=== PATIENT | female | born 1970 | race Caucasian/White ===

== ENCOUNTER 2021-03-25 11:27 | Emergency (ER) | payer MEDICAID ==
[~2021-03-25] VITALS: Ht 157.5 cm; Wt 69.9 kg
[2021-03-25 11:40] VITALS: BP 125/67
--- NOTE | 2021-03-25 11:50 | NUR ---
PT AMBULATED TO BED 12 WITH STEADY GAIT. PT PROVIDED URINE SAMPLE.
--- NOTE | 2021-03-25 12:10 | NUR ---
51 Y/O FEMALE C/O LEFT FLANK PAIN AND LEFT-SIDED ABDOMINAL PAIN X 2 WEEKS. PT STATES PAIN IS WORSE THE LAST FEW DAYS. /10, SORENESS. (+)DYSURIA WITH BURNING PAIN, (-)HEMATURIA. PT STATES THAT SHE HAS RECURRRENT UTI, WITH LAST USE OF ABX LAST MONTH. TOOK TYLENOL YESTERDAY. PT A/O X4 WITH EVEN AND UNLABORED RESPIRATIONS. PMH: DM, HLD, RECURRENT UTIS, KIDNEY STONES, KIDNEY STENT, COPD, CHF MEDS: INSULIN, METFORMIN, ATORVASTATIN NKA
--- NOTE | 2021-03-25 12:13 | NUR ---
DR FULLER AT BEDSIDE EVALUATING PT
[2021-03-25] MEDS ORDERED: KETOROLAC 60 MG/2 ML VIAL IM ONE (12:20)
[2021-03-25] MEDS ORDERED: ONDANSETRON 4 MG ODT PO ONE (12:20)
[2021-03-25] MEDS ORDERED: FAMOTIDINE 20 MG TAB PO ONE (12:20)
[2021-03-25 13:16] LABS: BASOPHILS # (AUTO) 0.1 K/uL (0.00-0.22); BASOPHILS % (AUTO) 0.7 % (0.0-2.0); EOSINOPHILS % (AUTO) 0.5 % (0.0-4.0); HEMATOCRIT 49.7 % (36-48); HEMOGLOBIN 17.2 g/dL (12.0-16.0); LYMPHOCYTES # (AUTO) 1.5 K/uL (2.5-16.5); LYMPHOCYTES % (AUTO) 19.1 % (20.5-51.1); MEAN CORPUSCULAR HEMOGLOBIN 31 pg (27-31); MEAN CORPUSCULAR HGB CONC 35 g/dL (33-37); MEAN CORPUSCULAR VOLUME 90.2 fL (80-94); MONOCYTES # (AUTO) 0.6 K/uL (0.8-1.0); MONOCYTES % (AUTO) 7.3 % (1.7-9.3); NEUTROPHILS # (AUTO) 5.7 K/uL (1.8-7.7); NEUTROPHILS % (AUTO) 72.4 % (42.2-75.2); PLATELET COUNT (AUTO) 240 K/uL (140-450); RED BLOOD CELL COUNT(AUTO) 5.51 MIL/uL (4.20-5.40); RED CELL DISTRIBUTION WIDTH 13.2 % (11.6-13.7); WHITE BLOOD COUNT (AUTO) 7.9 K/uL (4.8-10.8)
[2021-03-25 13:18] LABS: ALBUMIN 4.4 g/dL (3.4-5.0); CARBON DIOXIDE 29.1 mmol/L (21-32); CREATININE 1.2 mg/dL (0.6-1.3); POTASSIUM 4.1 mmol/L (3.5-5.1); TOTAL BILIRUBIN 0.4 mg/dL (0.0-1.0)
--- NOTE | 2021-03-25 13:45 | NUR ---
PT IS NOW C/O HEADACHE. DR FULLER MADE AWARE
[2021-03-25] MEDS ORDERED: ACETAMINOPHEN 325 MG TAB PO ONE (13:55)
--- NOTE | 2021-03-25 14:00 | NUR ---
providing relief for primary RN. pt currently a/o x 4, gcs 15.NAD at this time.
[2021-03-25] MEDS ORDERED: ACET-8386 PO (14:26)
[2021-03-25] MEDS ORDERED: NAPR-1546 PO (14:26)
[2021-03-25] MEDS ORDERED: SULF-58 PO (14:26)
[2021-03-25 14:28] LABS: BILIRUBIN,URINE NEGATIVE (NEGATIVE); BLOOD, URINE NEGATIVE (NEGATIVE); COLOR,URINE YELLOW (YELLOW); LEUKOCYTE ESTERASE ,URINE 2+ (NEGATIVE); NITRITE, URINE NEGATIVE (NEGATIVE); UGLUCOSE 1+ (NEGATIVE)
[2021-03-25 14:38] LABS: APPEARANCE,URINE HAZY (CLEAR)
[2021-03-25 14:41] LABS: RBC,URINE NONE SEEN /HPF (0-5); WBC,URINE 20-60 /HPF (0-5)
[2021-03-25 14:45] VITALS: BP 141/71
--- NOTE | 2021-03-25 15:07 | NUR ---
Patient discharged with v/s stable. Written and verbal after care instructions ABOUT MEDICATION, UTI, AND GASTROESOPHAGEAL REFLUX DISEASE given and explained. Patient alert, oriented and verbalized understanding of instructions. Ambulatory with steady gait. All questions addressed prior to discharge. ID band removed. Patient advised to follow up with PMD. Rx of HYDROCODONE/ACETAMINOPHEN 5-325MG, NAPROXEN, AND BACTRIM 400-80MG TAB given. Patient educated on indication of medication including possible reaction and side effects. Opportunity to ask questions provided and answered.
== END 2021-03-25 15:07 | disposition home or self-care (01) ==
LOC: MED 11:27
DX: N12 Tubulo-interstitial nephritis, not specified as acute or chronic (principal); K21.9 Gastro-esophageal reflux disease without esophagitis; J44.9 Chronic obstructive pulmonary disease, unspecified; E11.9 Type 2 diabetes mellitus without complications; I10 Essential (primary) hypertension; E78.5 Hyperlipidemia, unspecified; Z79.899 Other long term (current) drug therapy; Z87.442 Personal history of urinary calculi
CPT/HCPCS: 36415; 80053; 81001; 81025; 83690; 85025; 87086; 96361; 96374; 99283; J1885; Q0162

== ENCOUNTER 2021-07-25 15:10 | Emergency (ER) | payer MEDICAID, OTHER ==
[~2021-07-25] VITALS: Ht 157.5 cm; Wt 74.4 kg
[~2021-07-25 15:10] MED LIST: ACET-8386 PO; NAPR-1546 PO; SULF-58 PO
[2021-07-25 15:46] VITALS: BP 125/87
--- NOTE | 2021-07-25 17:08 | NUR ---
PT BROUGHT TO TRIAGE FOR ERMD EVALUATION.
[2021-07-25] MEDS ORDERED: KETOROLAC 60 MG/2 ML VIAL IM ONE (17:20)
--- NOTE | 2021-07-25 17:40 | NUR ---
PT AMBUATED WITH EVEN AND STEADY GAIT TO BED 7
[2021-07-25 17:44] LABS: APPEARANCE,URINE CLEAR (CLEAR); BILIRUBIN,URINE NEGATIVE (NEGATIVE); BLOOD, URINE NEGATIVE (NEGATIVE); COLOR,URINE YELLOW (YELLOW); LEUKOCYTE ESTERASE ,URINE NEGATIVE (NEGATIVE); NITRITE, URINE NEGATIVE (NEGATIVE); UGLUCOSE 3+ (NEGATIVE)
[2021-07-25 17:44] LABS: BASOPHILS % (AUTO) 0.4 % (0.0-2.0); EOSINOPHILS # (AUTO) 0.1 K/uL (0-0.4); EOSINOPHILS % (AUTO) 0.9 % (0.0-4.0); HEMATOCRIT 47.7 % (36-48); HEMOGLOBIN 16.2 g/dL (12.0-16.0); LYMPHOCYTES # (AUTO) 1.9 K/uL (2.5-16.5); LYMPHOCYTES % (AUTO) 18.9 % (20.5-51.1); MEAN CORPUSCULAR HEMOGLOBIN 31 pg (27-31); MEAN CORPUSCULAR HGB CONC 34 g/dL (33-37); MEAN CORPUSCULAR VOLUME 91.6 fL (80-94); MONOCYTES # (AUTO) 0.7 K/uL (0.8-1.0); MONOCYTES % (AUTO) 7.5 % (1.7-9.3); NEUTROPHILS # (AUTO) 7.1 K/uL (1.8-7.7); NEUTROPHILS % (AUTO) 72.3 % (42.2-75.2); PLATELET COUNT (AUTO) 271 K/uL (140-450); RED BLOOD CELL COUNT(AUTO) 5.21 MIL/uL (4.20-5.40); RED CELL DISTRIBUTION WIDTH 13.2 % (11.6-13.7); WHITE BLOOD COUNT (AUTO) 9.8 K/uL (4.8-10.8)
--- NOTE | 2021-07-25 17:49 | NUR ---
51 y/o female from home c/o left flank pain with urinary burning x 1 wk. Pt states that she feels like she has kidney stones. Hx of stones in the past. Denies n/v/d. Abd soft, nontender to palp. RR even and unlabored. Bed locked and lowest position. Awake and alert medhx: DM, anxiety
[2021-07-25 18:04] LABS: ALBUMIN 4.1 g/dL (3.4-5.0); ANION GAP 16.7 (8-16); CARBON DIOXIDE 27.5 mmol/L (21-32); CREATININE 1.4 mg/dL (0.6-1.3); POTASSIUM 4.2 mmol/L (3.5-5.1); TOTAL BILIRUBIN 0.3 mg/dL (0.0-1.0)
[2021-07-25] MEDS ORDERED: BEN10 PO (19:04)
[2021-07-25] MEDS ORDERED: ONDA-188 SL (19:04)
[2021-07-25] MEDS ORDERED: SIME180C9 PO (19:04)
[2021-07-25 19:30] VITALS: BP 125/87
--- NOTE | 2021-07-25 19:31 | NUR ---
PT WAS GIVEN COPY OF LAB AND IMAGING RESULTS PER REQUEST. PT WAS TAUGHT TO ROTATE SITES FOR INSULIN INJECTION DUE TO BRUISING AT CURRENT AREA. WAS TOLD AROUND UMBILICAL AREA AND SUBQ AREA ON UPPER ARM
--- NOTE | 2021-07-25 19:31 | NUR ---
Patient discharged with v/s stable. Written and verbal after care instructions given and explained. Patient alert, oriented and verbalized understanding of instructions. Ambulatory with steady gait. All questions addressed prior to discharge. ID band removed. Patient advised to follow up with PMD. Rx of DICYCLOMINE, ONDANSETRON, SIMETHICONE (SCRIPT) given. Patient educated on indication of medication including possible reaction and side effects. Opportunity to ask questions provided and answered.
== END 2021-07-25 19:31 | disposition home or self-care (01) ==
LOC: MED 15:10
DX: R10.9 Unspecified abdominal pain (principal); R94.5 Abnormal results of liver function studies; J44.9 Chronic obstructive pulmonary disease, unspecified; K21.9 Gastro-esophageal reflux disease without esophagitis; E78.5 Hyperlipidemia, unspecified; I10 Essential (primary) hypertension; Z87.442 Personal history of urinary calculi; Z79.899 Other long term (current) drug therapy
CPT/HCPCS: 36415; 71045; 74176; 80053; 81003; 83690; 84484; 85025; 93005; 96372; 99285; J1885; Q0092

== ENCOUNTER 2022-03-04 17:32 | Emergency (ER) | payer OTHER ==
[~2022-03-04] VITALS: Ht 157.5 cm; Wt 70.9 kg
[~2022-03-04 17:32] MED LIST changes: +BEN10 PO; +ONDA-188 SL; +SIME180C9 PO
[2022-03-04 17:46] VITALS: BP 146/105
[2022-03-04 19:04] LABS: BASOPHILS # (AUTO) 0.1 K/uL (0.00-0.22); BASOPHILS % (AUTO) 0.5 % (0.0-2.0); EOSINOPHILS # (AUTO) 0.1 K/uL (0-0.4); EOSINOPHILS % (AUTO) 1.1 % (0.0-4.0); HEMOGLOBIN 17.3 g/dL (12.0-16.0); LYMPHOCYTES # (AUTO) 1.3 K/uL (2.5-16.5); LYMPHOCYTES % (AUTO) 13.1 % (20.5-51.1); MEAN CORPUSCULAR HEMOGLOBIN 29 pg (27-31); MEAN CORPUSCULAR HGB CONC 33 g/dL (33-37); MEAN CORPUSCULAR VOLUME 86.9 fL (80-94); MONOCYTES # (AUTO) 0.7 K/uL (0.8-1.0); MONOCYTES % (AUTO) 6.8 % (1.7-9.3); NEUTROPHILS # (AUTO) 7.9 K/uL (1.8-7.7); NEUTROPHILS % (AUTO) 78.5 % (42.2-75.2); PLATELET COUNT (AUTO) 224 K/uL (140-450); RED BLOOD CELL COUNT(AUTO) 5.98 MIL/uL (4.20-5.40); RED CELL DISTRIBUTION WIDTH 14.1 % (11.6-13.7)
--- NOTE | 2022-03-04 19:07 | NUR ---
PT AMBULATED TO ER BED 9
--- NOTE | 2022-03-04 19:35 | NUR ---
RECEIVED IN BED 9 WITH C/O LOW BACK PAIN, URINARY BURNING/PAIN/ FREQUENCY, POSSIBLE YEAST INFECTION. PT STATES SHE HAS NAUSEA AND FEELS DIZZY. PT STATES " SHE JUST WANTS TO CLOSE HER EYES". BS 152 AT TRIAGE. PT DENIES FEVER. PT DENIES CHEST PAIN, SOB. PMH: DM, HDL, NEUROPATHY MEDS:METFORMIN, AMLODIPINE, GABAPENTIN
[2022-03-04 19:43] LABS: APPEARANCE,URINE CLEAR (CLEAR); BILIRUBIN,URINE NEGATIVE (NEGATIVE); BLOOD, URINE NEGATIVE (NEGATIVE); COLOR,URINE YELLOW (YELLOW); LEUKOCYTE ESTERASE ,URINE NEGATIVE (NEGATIVE); NITRITE, URINE NEGATIVE (NEGATIVE); PH,URINE 5.5 (5.0-9.0); UGLUCOSE 3+ (NEGATIVE)
[2022-03-04 19:49] LABS: ALBUMIN 4.2 g/dL (3.4-5.0); ANION GAP 13.1 (8-16); CARBON DIOXIDE 27.4 mmol/L (21-32); CREATININE 0.9 mg/dL (0.6-1.3); POTASSIUM 3.5 mmol/L (3.5-5.1); TOTAL BILIRUBIN 0.4 mg/dL (0.0-1.0)
--- NOTE | 2022-03-04 19:50 | NUR ---
PELVIC EXAM DONE. 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 WET MOUNT SENT TO LAB
[2022-03-04] MEDS ORDERED: ACET-10509 PO (22:12)
[2022-03-04 22:52] VITALS: BP 146/105
== END 2022-03-04 22:45 | disposition home or self-care (01) ==
LOC: MED 17:32
DX: N89.8 Other specified noninflammatory disorders of vagina (principal); R30.0 Dysuria; R10.32 Left lower quadrant pain; K21.9 Gastro-esophageal reflux disease without esophagitis; I25.10 Atherosclerotic heart disease of native coronary artery without angina pectoris; E11.9 Type 2 diabetes mellitus without complications; I10 Essential (primary) hypertension; Z79.4 Long term (current) use of insulin; Z79.899 Other long term (current) drug therapy
CPT/HCPCS: 36415; 80053; 81002; 81003; 84484; 84703; 85025; 87210; 93005; 99285

== ENCOUNTER 2022-05-01 19:00 | Emergency (ER) | payer OTHER ==
[~2022-05-01] VITALS: Ht 157.5 cm; Wt 70.3 kg
[~2022-05-01 19:00] MED LIST changes: +ACET-10509 PO
[2022-05-01 19:15] VITALS: BP 135/88
--- NOTE | 2022-05-01 21:07 | NUR ---
YOLETTE CASEY EXAMINING PATIENT
[2022-05-01] MEDS ORDERED: NAPR-1717 PO (22:00)
--- NOTE | 2022-05-01 22:07 | NUR ---
PT PROVIDED WITH DISCHARGE INSTRUCTIONS BY DR. SNELL. RX OF NAPROSYN PROVIDED.
== END 2022-05-01 22:08 | disposition home or self-care (01) ==
LOC: MED 19:00
DX: M77.9 Enthesopathy, unspecified (principal); J44.9 Chronic obstructive pulmonary disease, unspecified; I25.10 Atherosclerotic heart disease of native coronary artery without angina pectoris; I10 Essential (primary) hypertension; K21.9 Gastro-esophageal reflux disease without esophagitis; E11.9 Type 2 diabetes mellitus without complications; Z79.4 Long term (current) use of insulin; Z79.899 Other long term (current) drug therapy; Z98.890 Other specified postprocedural states
CPT/HCPCS: 73130; 99283

== ENCOUNTER 2023-01-13 16:06 | Inpatient (IN) | payer OTHER ==
[~2023-01-13] VITALS: Ht 157.5 cm; Wt 72.6 kg
[~2023-01-13 16:06] MED LIST changes: -ACET-8386 PO; +ACET-8905 PO; +NAPR-1717 PO
[2023-01-13 16:08] VITALS: BP 147/98
--- NOTE | 2023-01-13 16:09 | NUR ---
BIBA BLS TO ER BED 11
[2023-01-13] MEDS ORDERED: ALBUTEROL 0.083% 2.5 MG/3 ML NEBU INH ONE (16:15)
[2023-01-13] MEDS ORDERED: AZITHROMYCIN 250 MG TAB PO ONE (16:15)
[2023-01-13] MEDS ORDERED: methylPREDNISolone SS 125 MG/2 ML VIAL IVP ONE (16:15)
--- NOTE | 2023-01-13 16:25 | NUR ---
53 YO FEMALE PRESENTS TO THE ED WITH C/O SOB. PATIENT STATES SHE WAS AT WORK [employer]. AND SHE STARTED COUGHING, CHOKING, AND VOMITING. PATIENT STATES SHE HAS BEEN HEARING A WHEEZING FOR 2 WEEKS AT NIGHT WHILE SLEEPING THAT WAKES HER UP.
[2023-01-13 16:35] LABS: BASOPHILS % (AUTO) 0.5 % (0.0-2.0); EOSINOPHILS # (AUTO) 0.1 K/uL (0-0.4); EOSINOPHILS % (AUTO) 1.1 % (0.0-4.0); HEMATOCRIT 47.8 % (36-48); HEMOGLOBIN 16.3 g/dL (12.0-16.0); LYMPHOCYTES # (AUTO) 1.1 K/uL (2.5-16.5); LYMPHOCYTES % (AUTO) 14.2 % (20.5-51.1); MEAN CORPUSCULAR HEMOGLOBIN 30 pg (27-31); MEAN CORPUSCULAR HGB CONC 34 g/dL (33-37); MEAN CORPUSCULAR VOLUME 88.3 fL (80-94); MONOCYTES # (AUTO) 0.6 K/uL (0.8-1.0); NEUTROPHILS # (AUTO) 5.7 K/uL (1.8-7.7); NEUTROPHILS % (AUTO) 76.2 % (42.2-75.2); PLATELET COUNT (AUTO) 211 K/uL (140-450); RED BLOOD CELL COUNT(AUTO) 5.42 MIL/uL (4.20-5.40); RED CELL DISTRIBUTION WIDTH 13.7 % (11.6-13.7); WHITE BLOOD COUNT (AUTO) 7.5 K/uL (4.8-10.8)
[2023-01-13] MEDS ORDERED: predniSONE 20 MG TAB PO ONE (16:35)
--- NOTE | 2023-01-13 16:47 | NUR ---
rt at bedside for br tx
[2023-01-13 16:49] LABS: ALBUMIN 3.8 g/dL (3.4-5.0); CARBON DIOXIDE 29.3 mmol/L (21-32); CREATININE 1.4 mg/dL (0.6-1.3); POTASSIUM 4.3 mmol/L (3.5-5.1); TOTAL BILIRUBIN 0.3 mg/dL (0.0-1.0)
--- NOTE | 2023-01-13 17:50 | NUR ---
PT AMBULATED IN ER WITH STEADY GAIT. PULSE OX MONITORED WITH PORTABLE SPO2 MONITOR. O2 AT REST 90%, O2 DURING AMBULATION IS 82% RA. ERMD MADE AWARE
--- NOTE | 2023-01-13 18:10 | NUR ---
COVID SWAB COLLECTED AND SENT TO LAB
[2023-01-13] MEDS ORDERED: CLON-527 TD (18:39)
[2023-01-13] MEDS ORDERED: SERT100T PO (18:39)
[2023-01-13] MEDS ORDERED: AMLO5TAB PO (18:39)
[2023-01-13] MEDS ORDERED: ACETAMINOPHEN 325 MG TAB PO PRN (19:05)
[2023-01-13] MEDS ORDERED: ONDANSETRON 4 MG/2 ML VIAL IVP PRN (19:05)
[2023-01-13] MEDS ORDERED: LORazepam 2 MG/ML VIAL IVP PRN (19:05)
[2023-01-13] MEDS ORDERED: ALBUTEROL 0.083% 2.5 MG/3 ML NEBU INH PRN (19:05)
--- NOTE | 2023-01-13 19:26 | NUR ---
Received report from LAKISHA Bernal and continue care of patient.
--- NOTE | 2023-01-13 20:13 | NUR ---
Patient will be admitted to care of Dr. Pool. Admited to TELE. Will go to room 105A. Belongings list completed. Report to LAKISHA Arriaza.
[2023-01-13 20:25] VITALS: BP 156/86
--- NOTE | 2023-01-13 20:25 | NUR ---
RECEIVED PT ER. PATIENT IS AWAKE, ALERT AND ORIENTED X 4. AMBULATED TO THE BED WITH STEADY GAIT. DENIES PAIN. DENIES SHORTNESS OF BREATH ON 02-2L SAT 93%. SKIN WARM AND DRY TO TOUCH. ORIENTED TO [facility] SET UP, UPDATED WHITEBOARD. BED IN THE LOWEST AND LOCKED POSITION FOR SAFETY, CALL LIGHT GIVEN TO PT, ENCOURAGED TO CALL IF ASSISTANCE IS NEEDED, PT VERBALLY ACKNOWLEDGED.
[2023-01-13] MEDS ORDERED: DEXTROSE 50% 50 ML SYR IVP PRN (20:55)
[2023-01-13] MEDS: INSULIN LISPRO SLIDING SCALE 100 UNITS/ML VIAL SUBQ PRN (21:41)
[2023-01-13] MEDS: BLOOD GLUCOSE MONITORING 1 DEV DEV FS SCH (21:41)
[2023-01-13] MEDS: methylPREDNISolone SS 125 MG/2 ML VIAL IVP SCH (23:14)
[2023-01-14] VITALS: BP 140/89
[2023-01-14 04:00] VITALS: BP 138/75
[2023-01-14] MEDS: methylPREDNISolone SS 125 MG/2 ML VIAL IVP SCH (05:31)
[2023-01-14] MEDS: BLOOD GLUCOSE MONITORING 1 DEV DEV FS SCH ×4 (06:38→20:43)
[2023-01-14] MEDS: INSULIN LISPRO SLIDING SCALE 100 UNITS/ML VIAL SUBQ PRN ×5 (06:38→20:46)
--- NOTE | 2023-01-14 06:42 | NUR ---
PATIENT IS AWAKE,ALERT AND ORIENTED X 4. NO ACUTE RESPIRATORY DISTRESS. ALL NEEDS ATTENDED TO. SAFETY PRECAUTIONS MAINTAINED DURING THE SHIFT, CALL LIGHT REMAINS WITHIN REACH.
--- NOTE | 2023-01-14 07:00 | NUR ---
RECEIVED REPORT FROM NIGHTSHIFT NURSE. PT AWAKE, STABLE. WILL CONTINUE WITH CARE.
[2023-01-14 08:00] VITALS: BP 166/99
[2023-01-14] MEDS ORDERED: methylPREDNISolone SS 40 MG/ML VIAL IVP SCH (08:10)
[2023-01-14 08:52] LABS: BASOPHILS % (AUTO) 0.2 % (0.0-2.0); HEMATOCRIT 51.9 % (36-48); HEMOGLOBIN 17.6 g/dL (12.0-16.0); LYMPHOCYTES # (AUTO) 0.7 K/uL (2.5-16.5); LYMPHOCYTES % (AUTO) 5.2 % (20.5-51.1); MEAN CORPUSCULAR HEMOGLOBIN 30 pg (27-31); MEAN CORPUSCULAR HGB CONC 34 g/dL (33-37); MEAN CORPUSCULAR VOLUME 87.8 fL (80-94); MONOCYTES # (AUTO) 0.1 K/uL (0.8-1.0); MONOCYTES % (AUTO) 0.7 % (1.7-9.3); NEUTROPHILS # (AUTO) 11.9 K/uL (1.8-7.7); NEUTROPHILS % (AUTO) 93.9 % (42.2-75.2); PLATELET COUNT (AUTO) 246 K/uL (140-450); RED BLOOD CELL COUNT(AUTO) 5.91 MIL/uL (4.20-5.40); RED CELL DISTRIBUTION WIDTH 13.8 % (11.6-13.7); WHITE BLOOD COUNT (AUTO) 12.7 K/uL (4.8-10.8)
--- NOTE | 2023-01-14 08:54 | NUR ---
PATIENT HAS BEEN SCREENED AND CATEGORIZED MODERATE NUTRITION RISK. PATIENT WILL BE SEEN WITHIN 3-5 DAYS OF ADMISSION. 01/13/23-01/18/[address] BY NISHA EPSTE[address] RD
[2023-01-14 09:05] LABS: ANION GAP 16.3 (8-16); CARBON DIOXIDE 26.7 mmol/L (21-32); CREATININE 0.9 mg/dL (0.6-1.3)
[2023-01-14] MEDS: MORPHINE SULFATE 2 MG/ML SYR IVP PRN ×2 (09:06→20:16)
[2023-01-14] MEDS: amLODIPine 5 MG TAB PO SCH (09:07)
[2023-01-14] MEDS: SERTRALINE 50 MG TAB PO SCH (09:07)
[2023-01-14] MEDS: ENOXAPARIN 40 MG/0.4 ML SYR SUBQ SCH (09:21)
[2023-01-14 12:00] VITALS: BP 154/94
--- NOTE | 2023-01-14 12:55 | NUR ---
DC PLANNIN YRS OLD FEMALE PATIENT WAS ADMITTED FROM HOME WITH A DX OF COPD. PATIENT HAS A HX OF HLD, HTN, COPD AND COVID. CXR NORMAL. RAPID COVID TEST NEGATIVE. ADMINISTERED IVF, IV ABX ROCEPHIN, AZITHROMYCIN AND BOO MEDROL IV. CONSULTED WITH [facility] FOR TASHA. DC PLAN TO GO HOME WHEN STABLE. CM TO FOLLOW Addendum: 01/15/23 at 1018 by JOHN SABILLON CM RECEIVED ORDER FOR PATIENT TO RECEIVE HOME HEALTH O2, AND NEBULIZER. FAXED ALL PAPERWORK TO [facility] AND [facility]. WILL FOLLOW UP WITH UPDATED INFORMATION. Addendum: 01/15/23 at 1236 by JOHN SABILLON CM FAXED FACE SHEET TO [facility]. CALLED [facility] TO CONFIRM THAT THEY RECEIVED BOTH FACE SHEET AND PRESCRIPTION, WHICH THEY DID. MEDS ARE ALL SET IN PLACE TO GET DELIVERED TO HOME. Addendum: 01/15/23 at 1254 by DONNA AMBROSIO CM DC PLANNING FOR DC TODAY WITH HOME O2 AND NEB MACHINE.DME ARRANGED BY GERALDOSAUSAGE LINKER.
[2023-01-14] MEDS: ALBUTEROL SULFATE/IPRATROPIU 3 ML SOL IH SCH ×2 (13:48→19:08)
[2023-01-14 16:00] VITALS: BP 147/88
[2023-01-14 18:48] LABS: APPEARANCE,URINE SL CLOUDY (CLEAR); BILIRUBIN,URINE NEGATIVE (NEGATIVE); BLOOD, URINE NEGATIVE (NEGATIVE); COLOR,URINE YELLOW (YELLOW); LEUKOCYTE ESTERASE ,URINE NEGATIVE (NEGATIVE); NITRITE, URINE POSITIVE (NEGATIVE); UGLUCOSE 3+ (NEGATIVE)
[2023-01-14 18:51] LABS: RBC,URINE 0-5 /HPF (0-5)
--- NOTE | 2023-01-14 19:20 | NUR ---
ENDORSED PT TO NIGHTSHIFT NURSE FOR CONTINUITY OF CARE. INFORMED MD OF PT'S HIGH BLOOD SUGAR. COVERED WITH INSULIN, WAITING FOR RESPONSE FROM MD. ENDORSED TO NIGHTSHIFT.
--- NOTE | 2023-01-14 19:30 | NUR ---
RECEIVED REPORT FROM DAY SHIFT NURSE ELANA FOR CONTINUITY OF CARE. PATIENT IS A&O X4. PATIENT IS ON 2L NC, BREATHING IS NORMAL WITH SYMMETRICAL RISE AND FALL OF CHEST. IV IS A 20 LAC, NO FLUIDS RUNNING AT THIS TIME. PATIENT IS AWAKE, LYING SEMI-FOWLERS IN BED. BED IS IN LOWEST POSITION, WHEELS LOCKED, CALL LIGHT IN PLACE. WILL CONTINUE TO OBSERVE PATIENT.
[2023-01-14 20:00] VITALS: BP 135/71
[2023-01-14] MEDS ORDERED: INSULIN LANTUS 100 UNITS/ML 10 ML VIAL SUBQ SCH (21:00)
[2023-01-14] MEDS ORDERED: AZITHROMYCIN 500 MG in DEXTROSE 5% 250 ML IV SCH (21:00)
--- NOTE | 2023-01-14 21:15 | NUR ---
PATIENT'S BS WAS 410. RECHECKED BS A FEW MINUTES LATER, BS WAS 432. MESSAGED DR. MARTINEZ ABOUT PATIENT'S BS. DR. MARTINEZ ORDER LANTUS 20 UNITS. HUMALOG 10 UNITS AND LANTUS 20 UNITS WERE ADMINISTERED TO THE PATIENT.
[2023-01-14 21:36] LABS: URINE TOTAL PROTEIN 49.5 mg/dL (0-12)
--- NOTE | 2023-01-14 22:30 | NUR ---
PATIENT REQUESTED PAIN MEDICATION FOR 8/10 LEFT ARM PAIN. ASSESSED IV SITE, NO REDNESS OR SWELLING PRESENT; FLUSHED IV, IV WAS PATENT. PATIENT'S BREATHING WAS UNLABORED AND HEART RATE WAS SINUS RHYTHM ON TELE MONITOR. CHECKED PATIENT'S CHART AND VITALS. MORPHINE WAS APPROPRIATE TO ADMINISTER. ADMINISTERED MORPHINE AND 2100 MEDICATION AZITHROMYCIN IVPB. 10 MINUTES LATER PATIENT COMPLAINED OF BURNING IN LEFT SHOULDER. IV WAS STOPPED AND AREA WAS ASSESSED. NO SIGN OF REDNESS OR SWELLING. RE-FLUSHED IV, IV PATENT. PATIENT STATED THAT HER ARM WAS FEELING BETTER. NEW IV WAS PLACED IN PATIENT'S R WRIST 22G. IV MEDICATION WAS STARTED AGAIN IN NEW IV, PATIENT STATED THAT THERE WAS NO PAIN. WILL CONTINUE TO OBSERVE PATIENT.
[2023-01-15] VITALS: BP 157/90
--- NOTE | 2023-01-15 01:00 | NUR ---
PATIENT IS SLEEPING, LYING ON HER SIDE. BREATHING IS NORMAL WITH SYMMETRICAL RISE AND FALL OF CHEST. WILL CONTINUE TO OBSERVE PATIENT.
[2023-01-15 04:00] VITALS: BP 156/95
--- NOTE | 2023-01-15 05:00 | NUR ---
PATIENT SLEPT THROUGHOUT THE NIGHT. BREATHING WAS NORMAL WITH SYMMETRICAL RISE AND FALL OF CHEST. WILL CONTINUE TO OBSERVE PATIENT.
[2023-01-15] MEDS: BLOOD GLUCOSE MONITORING 1 DEV DEV FS SCH ×2 (06:41→11:45)
[2023-01-15] MEDS: INSULIN LISPRO SLIDING SCALE 100 UNITS/ML VIAL SUBQ PRN ×2 (06:42→11:48)
[2023-01-15] MEDS: ALBUTEROL SULFATE/IPRATROPIU 3 ML SOL IH SCH ×2 (07:00→13:21)
[2023-01-15 07:02] LABS: ANION GAP 11.4 (8-16); CARBON DIOXIDE 30.3 mmol/L (21-32); CREATININE 0.9 mg/dL (0.6-1.3); POTASSIUM 3.7 mmol/L (3.5-5.1)
--- NOTE | 2023-01-15 07:10 | NUR ---
PT REFUSED TX. NO DISTRESS NOTED. WILL CONTINUE TO MONITOR.
--- NOTE | 2023-01-15 07:30 | NUR ---
RECEIVED REPORT FROM PERIOPERATIVE NURSE NURSE. POC DISCUSSED. PT CURRENTLY RESTING WITH CHEST RISING AND FALLING. NO ACUTE S/S OF DISTRESS. ALL SAFETY MEASURES IN PLACE. CALL LIGHT WITHIN REACH.
--- NOTE | 2023-01-15 07:30 | NUR ---
ENDORSED TO DAY SHIFT NURSE JOMAR AND ORIENTING NURSE GOOD FOR CONTINUITY OF CARE. PATIENT IS STABLE.
--- NOTE | 2023-01-15 07:48 | NUR ---
TRIED TO TITRATE PT TO ROOM AIR FROM 2L NC. PT EXPRESSED SHE FELT SHE NEEDED IT AND GET SOB WITHOUT IT. TOLD PT WE WILL TRY AGAIN LATER AND REASSESS. WILL CONTINUE TO MONITOR.
[2023-01-15 08:00] VITALS: BP 146/87
[2023-01-15] MEDS: amLODIPine 5 MG TAB PO SCH (08:17)
[2023-01-15] MEDS: SERTRALINE 50 MG TAB PO SCH (08:17)
[2023-01-15] MEDS: ENOXAPARIN 40 MG/0.4 ML SYR SUBQ SCH (08:19)
[2023-01-15] MEDS ORDERED: PRED20TA5 PO (08:36)
[2023-01-15] MEDS ORDERED: ALBU0.0912 IH (08:36)
[2023-01-15] MEDS ORDERED: CEFP200T20 PO (08:36)
[2023-01-15] MEDS ORDERED: ALBU3SOL83 IH (08:36)
[2023-01-15] MEDS ORDERED: AZIT250T4 PO (08:36)
[2023-01-15] MEDS ORDERED: methylPREDNISolone SS 40 MG/ML VIAL IVP SCH (09:00)
[2023-01-15 12:00] VITALS: BP 142/79
[2023-01-15] MEDS: MORPHINE SULFATE 2 MG/ML SYR IVP PRN (12:01)
--- NOTE | 2023-01-15 14:30 | NUR ---
HOME O2 AND NEBULIZER DROPPED OFF TO PTS ROOM, WILL INFORM PRIMARY RN.
[2023-01-15 14:47] VITALS: BP 142/79
--- NOTE | 2023-01-18 13:18 | NUR ---
CALLED DR CHAZ [facility] OFF[facility] LOCATED AT [address] [place] [address]. SPOKE WITH MERRILL WHO WAS ABLE TO HELP ME SCHEDULE A FOLLOW UP APPOINTMENT FOR 01/20/2023 AT 1240. CALLED PATIENT WHO ANSWERING MACHINE SAID NUMBER ISN'T IN SERVICE AND WHEN I CALLED PTN ANSWERING MACHINE SAYS THE SAME THING THAT NUMBER ISN'T IN SERVICE.
== END 2023-01-15 15:55 | disposition home or self-care (01) | DRG 720 ==
LOC: MED 16:06 → MTU 19:19 → OBSVTOIN 19:19 → MTU 19:51
PROVIDERS: ADMIT Internal Medicine; ATTEND Internal Medicine
DX: A41.9 Sepsis, unspecified organism (principal); J96.21 Acute and chronic respiratory failure with hypoxia; N17.9 Acute kidney failure, unspecified; J44.1 Chronic obstructive pulmonary disease with (acute) exacerbation; N39.0 Urinary tract infection, site not specified; I10 Essential (primary) hypertension; Z20.822 Contact with and (suspected) exposure to COVID-19; E78.5 Hyperlipidemia, unspecified; E11.9 Type 2 diabetes mellitus without complications; M77.8 Other enthesopathies, not elsewhere classified; Z79.1 Long term (current) use of non-steroidal anti-inflammatories (NSAID); Z79.899 Other long term (current) drug therapy; Z86.16 Personal history of COVID-19
CPT/HCPCS: 36415; 71045; 76770; 80048; 80053; 81001; 82570; 82948; 83735; 83880; 84100; 84484; 85025; 85379; 87081; 87086; 94640; 99291; 99292; J0456; J0696; J1650; J1815; J2270; J2920; J2930; J7060; J7512; J7613; Q0092

== ENCOUNTER 2023-03-02 09:47 | Emergency (ER) | payer OTHER ==
[~2023-03-02] VITALS: Ht 157.5 cm; Wt 72.6 kg
[~2023-03-02 09:47] MED LIST changes: +ALBU0.0912 IH; +ALBU3SOL83 IH; +AMLO5TAB PO; +AZIT250T4 PO; +CEFP200T20 PO; +CLON-527 TD; +PRED20TA5 PO; +SERT100T PO; -SULF-58 PO
[2023-03-02 10:00] VITALS: BP 146/70; PULSE 71; RESP 18; TEMP 97.9; O2SAT 99
[2023-03-02] MEDS ORDERED: KETOROLAC 30 MG/ML VIAL IM ONE (10:20)
--- NOTE | 2023-03-02 10:45 | NUR ---
UA WALKED, PREG -, DIPPED
[2023-03-02 11:05] LABS: BILIRUBIN,URINE NEGATIVE (NEGATIVE); BLOOD, URINE NEGATIVE (NEGATIVE); COLOR,URINE YELLOW (YELLOW); NITRITE, URINE NEGATIVE (NEGATIVE); UGLUCOSE 3+ (NEGATIVE)
--- NOTE | 2023-03-02 11:06 | NUR ---
53 Y/O FEMALE BIB SELF, PT PRESENTS TO ED WITH C/O RIGHT FLANK PAIN RADIATES TO LOW BACK AND RIGHT INGUINAL FOR 1 WEEK, PAIN INTENSITY INCREASES EVERY DAY. PT STATES SHE HAS ALSO BEEN HAVING DYSURIA FOR 4 DAYS. PAIN SCALE AT 8/10 AT THIS TIME. DENIES N/V/D. A&OX4, AMBULATES WITH STEADY GAIT. PMH: CARDIAC, HTN NKA
[2023-03-02 11:31] LABS: APPEARANCE,URINE HAZY (CLEAR)
[2023-03-02 12:18] LABS: CALCIUM OXALATE CRYSTALS,UR None Seen /HPF (None Seen); COARSE GRANULAR CASTS,URINE None Seen /LPF (None Seen); FINE GRANULAR CASTS,URINE None Seen /LPF (None Seen); HYALINE CASTS, URINE None Seen /LPF (None Seen); LEUKOCYTE ESTERASE ,URINE 2+ (NEGATIVE); OTHER CASTS, URINE None Seen /LPF (None Seen); OTHER CRYSTALS,URINE None Seen /HPF (None Seen); RED BLOOD CELL CASTS,URINE None Seen /LPF (None Seen); TRICHOMONAS,URINE None Seen /HPF (None Seen); TRIPLE PHOSPHATE CRYSTAL,UR None Seen /HPF (None Seen); URIC ACID CRYSTALS,URINE None Seen /HPF (None Seen); URINE AMORPHOUS URATE None Seen /HPF (None Seen); WAXY CASTS,URINE None Seen /LPF (None Seen); YEAST,URINE None Seen /HPF (None Seen)
[2023-03-02] MEDS ORDERED: CEFP200T20 PO (12:33)
[2023-03-02] MEDS ORDERED: IBUP-2213 PO (12:33)
[2023-03-02 12:47] VITALS: BP 151/89; PULSE 75; RESP 14; TEMP 97.5; O2SAT 94
--- NOTE | 2023-03-02 12:47 | NUR ---
Patient discharged with v/s stable. Written and verbal after care instructions given and explained. Patient alert, oriented and verbalized understanding of instructions. Ambulatory with steady gait. All questions addressed prior to discharge. ID band removed. Patient advised to follow up with PMD. Rx of MOTRIN, CEFPODOXIME PROXETIL (SENT) given. Patient educated on indication of medication including possible reaction and side effects. Opportunity to ask questions provided and answered.
[2023-03-04] MEDS ORDERED: LEVO-481 PO (15:53)
== END 2023-03-02 12:47 | disposition home or self-care (01) ==
LOC: MED 09:47
DX: N12 Tubulo-interstitial nephritis, not specified as acute or chronic (principal); J44.9 Chronic obstructive pulmonary disease, unspecified; E11.9 Type 2 diabetes mellitus without complications; I11.0 Hypertensive heart disease with heart failure; K21.9 Gastro-esophageal reflux disease without esophagitis; Z79.4 Long term (current) use of insulin; Z79.899 Other long term (current) drug therapy; Z98.890 Other specified postprocedural states
CPT/HCPCS: 81001; 81025; 87086; 87491; 96372; 99283; J1885; 87186

== ENCOUNTER 2023-05-05 08:57 | Emergency (ER) | payer OTHER ==
[~2023-05-05] VITALS: Ht 170.2 cm; Wt 69.9 kg
[~2023-05-05 08:57] MED LIST changes: +IBUP-2213 PO; +LEVO-481 PO
[2023-05-05 09:23] VITALS: BP 185/95; PULSE 80; RESP 14; TEMP 98.5; O2SAT 97
[2023-05-05] MEDS ORDERED: ONDANSETRON 4 MG/2 ML VIAL IVP ONE (09:50)
[2023-05-05] MEDS ORDERED: KETOROLAC 30 MG/ML VIAL IVP ONE (09:50)
[2023-05-05] MEDS ORDERED: NACL 0.9% 1,000 ML IV ONE (09:50)
[2023-05-05 10:00] VITALS: O2SAT 97
[2023-05-05 10:38] LABS: BASOPHILS % (AUTO) 0.3 % (0.0-2.0); EOSINOPHILS % (AUTO) 0.2 % (0.0-4.0); HEMATOCRIT 50.4 % (36-48); HEMOGLOBIN 17.2 g/dL (12.0-16.0); LYMPHOCYTES % (AUTO) 6.6 % (20.5-51.1); MEAN CORPUSCULAR HEMOGLOBIN 30 pg (27-31); MEAN CORPUSCULAR HGB CONC 34 g/dL (33-37); MEAN CORPUSCULAR VOLUME 86.5 fL (80-94); MONOCYTES # (AUTO) 0.8 K/uL (0.8-1.0); MONOCYTES % (AUTO) 5.3 % (1.7-9.3); NEUTROPHILS # (AUTO) 13.3 K/uL (1.8-7.7); NEUTROPHILS % (AUTO) 87.6 % (42.2-75.2); PLATELET COUNT (AUTO) 223 K/uL (140-450); RED BLOOD CELL COUNT(AUTO) 5.82 MIL/uL (4.20-5.40); RED CELL DISTRIBUTION WIDTH 14.6 % (11.6-13.7); WHITE BLOOD COUNT (AUTO) 15.1 K/uL (4.8-10.8)
[2023-05-05 10:59] LABS: BILIRUBIN,URINE NEGATIVE (NEGATIVE); BLOOD, URINE 3+ (NEGATIVE); LEUKOCYTE ESTERASE ,URINE TRACE (NEGATIVE); NITRITE, URINE POSITIVE (NEGATIVE); PROTEIN,URINE 3+ (NEGATIVE); UGLUCOSE 3+ (NEGATIVE)
[2023-05-05 11:03] LABS: ALBUMIN 3.6 g/dL (3.4-5.0); ANION GAP 14.7 (8-16); CALCIUM 8.7 mg/dL (8.5-10.1); CARBON DIOXIDE 27.1 mmol/L (21-32); CREATININE 1.1 mg/dL (0.6-1.3); POTASSIUM 3.8 mmol/L (3.5-5.1); TOTAL BILIRUBIN 0.5 mg/dL (0.0-1.0); TOTAL PROTEIN, SERUM 7.8 g/dL (6.4-8.2)
[2023-05-05 11:04] LABS: APPEARANCE,URINE CLOUDY (CLEAR)
[2023-05-05 11:23] LABS: BACTERIA,URINE 2+ /HPF (None Seen); COLOR,URINE BLOODY (YELLOW); RBC,URINE TOO NUMEROUS TO COUN /HPF (0-5); SQUAMOUS EPITHELIAL CELL,UR 0-3 (FEW) /LPF (0-3 (FEW)); WBC,URINE 0-5 /HPF (0-5)
[2023-05-05 12:00] VITALS: BP 140/88; PULSE 82; RESP 14; TEMP 98; O2SAT 98
[2023-05-05] MEDS ORDERED: CEPH-588 PO (12:33)
[2023-05-05] MEDS ORDERED: IBUP-2213 PO (12:33)
[2023-05-05] MEDS ORDERED: cefTRIAXone 1,000 MG VIAL ONE (12:48)
== END 2023-05-05 14:03 | disposition home or self-care (01) ==
LOC: MED 08:57
DX: N39.0 Urinary tract infection, site not specified (principal); N12 Tubulo-interstitial nephritis, not specified as acute or chronic; E11.65 Type 2 diabetes mellitus with hyperglycemia; I11.9 Hypertensive heart disease without heart failure; J44.9 Chronic obstructive pulmonary disease, unspecified; K21.9 Gastro-esophageal reflux disease without esophagitis; Z79.4 Long term (current) use of insulin; Z79.899 Other long term (current) drug therapy
CPT/HCPCS: 36415; 74177; 80053; 81001; 81025; 83690; 85025; 87086; 96361; 96365; 96375; 99285; J0696; J1885; J2405; J7030; Q9967

== ENCOUNTER 2023-06-09 11:02 | Emergency (ER) | payer MEDICAID, OTHER ==
[~2023-06-09] VITALS: Ht 157.5 cm; Wt 70.8 kg
[~2023-06-09 11:02] MED LIST changes: +CEPH-588 PO
[2023-06-09 11:13] VITALS: BP 136/88; PULSE 81; RESP 20; TEMP 97.9; O2SAT 96
[2023-06-09] MEDS ORDERED: CYCLOBENZAPRINE 10 MG TAB PO ONE (12:05)
[2023-06-09] MEDS ORDERED: ACETAMINOPHEN 325 MG TAB PO ONE (12:05)
[2023-06-09] MEDS ORDERED: LIDOCAINE/PRILOCAINE 2.5% 5 GM TUBE TP ONE (12:05)
[2023-06-09 12:49] LABS: APPEARANCE,URINE CLEAR (CLEAR); BILIRUBIN,URINE NEGATIVE (NEGATIVE); BLOOD, URINE NEGATIVE (NEGATIVE); COLOR,URINE YELLOW (YELLOW); LEUKOCYTE ESTERASE ,URINE NEGATIVE (NEGATIVE); NITRITE, URINE NEGATIVE (NEGATIVE); PROTEIN,URINE 1+ (NEGATIVE); UGLUCOSE 3+ (NEGATIVE); UROBILINOGEN,URINE 0.2 EU/dL (0.2 - 1)
[2023-06-09 13:03] LABS: BACTERIA,URINE 1+ /HPF (None Seen); RBC,URINE 0-5 /HPF (0-5); SQUAMOUS EPITHELIAL CELL,UR 20-50 /LPF (0-3 (FEW))
[2023-06-09] MEDS ORDERED: IBUP-1842 PO (13:13)
[2023-06-09] MEDS ORDERED: OXYC5TAB4 PO (13:13)
[2023-06-09] MEDS ORDERED: EMLAC TP (13:13)
[2023-06-09] MEDS ORDERED: CEPH-588 PO (13:14)
[2023-06-09 13:32] VITALS: BP 130/88; PULSE 75; RESP 20; TEMP 98; O2SAT 99
== END 2023-06-09 13:32 | disposition home or self-care (01) ==
LOC: MED 11:02
DX: S22.32XA Fracture of one rib, left side, initial encounter for closed fracture (principal); N39.0 Urinary tract infection, site not specified; J44.9 Chronic obstructive pulmonary disease, unspecified; E11.9 Type 2 diabetes mellitus without complications; K21.9 Gastro-esophageal reflux disease without esophagitis; I11.0 Hypertensive heart disease with heart failure; I50.9 Heart failure, unspecified; Z79.899 Other long term (current) drug therapy; Z79.1 Long term (current) use of non-steroidal anti-inflammatories (NSAID); Z79.2 Long term (current) use of antibiotics; W06.XXXA Fall from bed, initial encounter; Y93.89 Activity, other specified; Y92.89 Other specified places as the place of occurrence of the external cause; Y99.8 Other external cause status
CPT/HCPCS: 71101; 81001; 87086; 99284

== ENCOUNTER 2023-09-24 08:38 | Emergency (ER) | payer MEDICAID, OTHER ==
[~2023-09-24] VITALS: Ht 167.6 cm; Wt 68.0 kg
[~2023-09-24 08:38] MED LIST changes: +EMLAC TP; +IBUP-1842 PO; +OXYC5TAB4 PO
[2023-09-24 09:12] VITALS: BP 145/88; PULSE 90; RESP 20; TEMP 98; O2SAT 95
[2023-09-24 09:22] VITALS: TEMP 98
[2023-09-24] MEDS ORDERED: predniSONE 20 MG TAB PO ONE (09:35)
[2023-09-24] MEDS ORDERED: ALBUTEROL SULFATE/IPRATROPIU 3 ML SOL IH ONE (09:35)
[2023-09-24] MEDS ORDERED: ALBUTEROL 0.083% 2.5 MG/3 ML NEBU INH ONE (09:35)
[2023-09-24 09:45] VITALS: PULSE 85; RESP 20; O2SAT 90
[2023-09-24] MEDS ORDERED: PRED20TA5 PO (13:35)
[2023-09-24 14:05] VITALS: BP 117/80; PULSE 92; RESP 18; O2SAT 95
== END 2023-09-24 14:05 | disposition home or self-care (01) ==
LOC: MED 08:38
DX: J44.1 Chronic obstructive pulmonary disease with (acute) exacerbation (principal); J18.9 Pneumonia, unspecified organism; I11.9 Hypertensive heart disease without heart failure; E11.9 Type 2 diabetes mellitus without complications; K21.9 Gastro-esophageal reflux disease without esophagitis; Z79.899 Other long term (current) drug therapy; Z79.4 Long term (current) use of insulin
CPT/HCPCS: 71045; 81025; 93005; 94640; 99285; J7512; J7613